=== PATIENT | male | born 1975 | race Caucasian/White ===

== ENCOUNTER → 2018-04-29 | Day surgery (SDC) | payer OTHER ==
[~2018-04-29] VITALS: Ht 170.2 cm; Wt 86.8 kg
[~2018-04-29] MED LIST: AMLO-511 PO; ASPI81 PO; ATOR40TA28 PO; BENZOCAINE 20% 50 MCG/SPRAY 57 GM ONE; BENZOCAINE 20% 50 MCG/SPRAY 57 GM TP ONE; FentaNYL CITRATE-PF 100 MCG/2 ML VIAL IVP ONE; FentaNYL CITRATE-PF 100 MCG/2 ML VIAL ONE; LOSA50TA37 PO; METO25 PO; MIDAZOLAM HCL 2 MG/2 ML VIAL IVP ONE; MIDAZOLAM HCL 2 MG/2 ML VIAL ONE; OXYGEN THERAPY IH SCH; SODIUM CHLORIDE 0.9% 1,000 ML IV ONE
[2018-04-29 06:54] LABS: BASOPHILS % (AUTO) 1.1 % (0.0-2.0); EOSINOPHILS % (AUTO) 2.1 % (1.0-6.0); HEMATOCRIT 38.4 % (41-53); HEMOGLOBIN 13.3 g/dL (13.5-17.5); LYMPHOCYTES % (AUTO) 29.8 % (22.0-44.0); MEAN CORPUSCULAR HEMOGLOBIN 29.4 pg (26.0-34.0); MEAN CORPUSCULAR HGB CONC 34.7 G/dL (31.0-37.0); MEAN CORPUSCULAR VOLUME 85 fL (80-100); MONOCYTES # (AUTO) 0.5 K/uL (0.1-1.0); MONOCYTES % (AUTO) 7.5 % (2.0-9.0); NEUTROPHILS # (AUTO) 3.9 K/uL (1.8-7.7); NEUTROPHILS % (AUTO) 59.5 % (40.0-70.0); PLATELET COUNT (AUTO) 159 K/uL (150-450); RED BLOOD CELL COUNT(AUTO) 4.53 MIL/uL (4.50-5.90); RED CELL DISTRIBUTION WIDTH 13.5 % (11.5-14.5)
[2018-04-29 07:26] LABS: ANION GAP 5 mmol/L (8-16); CALCIUM, TOTAL 8.6 mg/dL (8.8-10.5); CARBON DIOXIDE 27 mmol/L (22-29); CHLORIDE 108 mmol/L (98-107); CREATININE 0.87 mg/dL (0.60-1.30); GLOMERULAR FILTR. RATE CALC > 60 mL/min (>60); GLUCOSE,RANDOM 96 mg/dL (70-110); POTASSIUM 4.1 mmol/L (3.5-5.1); SODIUM SERUM 140 mmol/L (136-145); UREA NITROGEN, BLOOD 18 mg/dL (7-18)
[2018-04-29 07:30] LABS: INR 1.1 (0.9-1.1); PROTHROMBIN TIME 11.8 SEC (9.4-11.6)
[2018-04-29 07:37] VITALS: BP 150/85
[2018-04-29 08:17] VITALS: BP 114/71
== END | disposition home or self-care (01) ==
LOC: CATHLAB 06:16
PROVIDERS: ATTEND Internal Medicine Cardiovascular Disease
DX: I44.0 Atrioventricular block, first degree (principal); Q21.1 Atrial septal defect; I45.2 Bifascicular block; I11.9 Hypertensive heart disease without heart failure; Z79.82 Long term (current) use of aspirin; Z79.899 Other long term (current) drug therapy
CPT/HCPCS: 36415; 80048; 85025; 85610; 85730; 93005; 93312; 99152; 99153; J2250; J3010; J7030

== ENCOUNTER 2022-08-01 19:26 | Emergency (ER) | payer OTHER ==
[~2022-08-01] VITALS: Ht 170.2 cm; Wt 77.3 kg
[~2022-08-01 19:26] MED LIST changes: +AMLO-257 PO; -AMLO-511 PO; +ASPI-1450 PO; -ASPI81 PO; -BENZOCAINE 20% 50 MCG/SPRAY 57 GM ONE; -BENZOCAINE 20% 50 MCG/SPRAY 57 GM TP ONE; -FentaNYL CITRATE-PF 100 MCG/2 ML VIAL IVP ONE; -FentaNYL CITRATE-PF 100 MCG/2 ML VIAL ONE; +LOSA-382 PO; -LOSA50TA37 PO; -MIDAZOLAM HCL 2 MG/2 ML VIAL IVP ONE; -MIDAZOLAM HCL 2 MG/2 ML VIAL ONE; -OXYGEN THERAPY IH SCH; -SODIUM CHLORIDE 0.9% 1,000 ML IV ONE
[2022-08-01] MEDS ORDERED: ALIR75PE5 IM (20:01)
[2022-08-01 20:29] LABS: BASOPHILS % (AUTO) 1.1 % (0.0-2.0); EOSINOPHILS % (AUTO) 2.6 % (1.0-6.0); HEMATOCRIT 44.9 % (41-53); HEMOGLOBIN 14.9 g/dL (13.5-17.5); LYMPHOCYTES # (AUTO) 2.4 K/uL (1.0-4.8); LYMPHOCYTES % (AUTO) 31.8 % (22.0-44.0); MEAN CORPUSCULAR HEMOGLOBIN 28.5 pg (26.0-34.0); MEAN CORPUSCULAR HGB CONC 33.2 G/dL (31.0-37.0); MEAN CORPUSCULAR VOLUME 86 fL (80-100); MONOCYTES # (AUTO) 0.6 K/uL (0.1-1.0); MONOCYTES % (AUTO) 7.5 % (2.0-9.0); NEUTROPHILS # (AUTO) 4.3 K/uL (1.8-7.7); PLATELET COUNT (AUTO) 141 K/uL (150-450); RED BLOOD CELL COUNT(AUTO) 5.23 MIL/uL (4.50-5.90); RED CELL DISTRIBUTION WIDTH 14.3 % (11.5-14.5)
[2022-08-01 20:38] LABS: ANION GAP 13 mmol/L (8-16); CALCIUM, TOTAL 9.5 mg/dL (8.8-10.5); CARBON DIOXIDE 23 mmol/L (22-29); CHLORIDE 104 mmol/L (98-107); GLUCOSE,RANDOM 98 mg/dL (70-110); POTASSIUM 3.8 mmol/L (3.5-5.1); SODIUM SERUM 140 mmol/L (136-145); UREA NITROGEN, BLOOD 20 mg/dL (7-18)
[2022-08-01 20:39] LABS: GLOMERULAR FILTR. RATE CALC > 60 mL/min (>60)
[2022-08-01 20:44] LABS: ALANINE AMINOTRANSFERASE 277 U/L (12-78); ALBUMIN 4.2 g/dL (3.4-5.0); ALKALINE PHOSPHATASE 49 U/L (46-116); ASPARTATE AMINOTRANSFERASE 147 U/L (15-37); BILIRUBIN,TOTAL 0.5 mg/dL (0.1-1.0); TOTAL PROTEIN, SERUM 7.6 g/dL (6.4-8.2)
[2022-08-01 20:48] LABS: APPEARANCE,URINE HAZY (CLEAR); BILIRUBIN,URINE NEGATIVE (NEGATIVE); GLUCOSE, URINE (UA) NEGATIVE (NEGATIVE); KETONES,URINE NEGATIVE (NEGATIVE); LEUKOCYTE ESTERASE ,URINE NEGATIVE (NEGATIVE); NITRATE,URINE NEGATIVE (NEGATIVE); OCCULT BLOOD,URINE LARGE (NEGATIVE); PROTEIN,URINE 30-70 mg/dL (NEGATIVE); SPECIFIC GRAVITIY, URINE 1.023 (1.003-1.030); UROBILINOGEN,URINE <=1.0 mg/dL (<=1.0)
[2022-08-01 21:27] LABS: RBC,URINE >100 /HPF (0-2)
[2022-08-01 21:28] LABS: BACTERIA,URINE None Seen /HPF (None Seen)
[2022-08-01] MEDS ORDERED: KETOROLAC TROMETHAMINE 30 MG/ML VIAL IVP ONE (22:45)
[2022-08-01] MEDS ORDERED: SODIUM CHLORIDE 0.9% 1,000 ML IV ONE (22:45)
[2022-08-02] MEDS ORDERED: HYDR-4723 PO (00:58)
[2022-08-02] MEDS ORDERED: SULF-261 PO (00:58)
[2022-08-02] MEDS ORDERED: TAMS-13 PO (00:58)
[2022-08-02] MEDS ORDERED: TAMSULOSIN HCL 0.4 MG CAPSULE PO ONE (01:00)
[2022-08-02] MEDS ORDERED: SULFAMETHOX/TRIMETH DS 800-160 MG/TABLET PO ONE (01:00)
[2022-08-02 01:50] VITALS: BP 130/79
== END 2022-08-02 02:14 | disposition home or self-care (01) ==
LOC: EMS 19:26
DX: N20.1 Calculus of ureter (principal); E78.00 Pure hypercholesterolemia, unspecified; I10 Essential (primary) hypertension; R74.01 Elevation of levels of liver transaminase levels; Z87.442 Personal history of urinary calculi
CPT/HCPCS: 99284; 74176; 96374; 76700; 80053; 81001; 85025; 36415; J1885; J7030; 81003

== ENCOUNTER 2022-08-15 14:16 | Inpatient (IN) | payer OTHER ==
[~2022-08-15] VITALS: Ht 172.7 cm; Wt 88.3 kg
[~2022-08-15 14:16] MED LIST changes: +ALIR75PE5 IM; -AMLO-257 PO; -ATOR40TA28 PO; +HYDR-4723 PO; -LOSA-382 PO; +SULF-261 PO; +TAMS-13 PO
[2022-08-15] MEDS ORDERED: SODIUM CHLORIDE 0.9% 1,000 ML IV ONE ×2 (16:30→18:00)
[2022-08-15] MEDS ORDERED: KETOROLAC TROMETHAMINE 30 MG/ML VIAL IVP ONE (16:30)
[2022-08-15 16:39] LABS: BASOPHILS % (AUTO) 0.7 % (0.0-2.0); EOSINOPHILS % (AUTO) 0.6 % (1.0-6.0); HEMATOCRIT 47.2 % (41-53); HEMOGLOBIN 15.4 g/dL (13.5-17.5); LYMPHOCYTES % (AUTO) 11.7 % (22.0-44.0); MEAN CORPUSCULAR HEMOGLOBIN 28.8 pg (26.0-34.0); MEAN CORPUSCULAR HGB CONC 32.7 G/dL (31.0-37.0); MEAN CORPUSCULAR VOLUME 88 fL (80-100); MONOCYTES # (AUTO) 0.5 K/uL (0.1-1.0); MONOCYTES % (AUTO) 6.1 % (2.0-9.0); NEUTROPHILS # (AUTO) 7.1 K/uL (1.8-7.7); NEUTROPHILS % (AUTO) 80.9 % (40.0-70.0); PLATELET COUNT (AUTO) 123 K/uL (150-450); RED BLOOD CELL COUNT(AUTO) 5.35 MIL/uL (4.50-5.90); RED CELL DISTRIBUTION WIDTH 13.9 % (11.5-14.5)
[2022-08-15 16:53] LABS: ANION GAP 8 mmol/L (8-16); CALCIUM, TOTAL 9.3 mg/dL (8.8-10.5); CARBON DIOXIDE 28 mmol/L (22-29); CHLORIDE 104 mmol/L (98-107); CREATININE 0.84 mg/dL (0.60-1.30); GLOMERULAR FILTR. RATE CALC > 60 mL/min (>60); GLUCOSE,RANDOM 100 mg/dL (70-110); POTASSIUM 4.1 mmol/L (3.5-5.1); SODIUM SERUM 140 mmol/L (136-145); UREA NITROGEN, BLOOD 18 mg/dL (7-18)
[2022-08-15 16:57] LABS: ALANINE AMINOTRANSFERASE 210 U/L (12-78); ALBUMIN 4.3 g/dL (3.4-5.0); ALKALINE PHOSPHATASE 49 U/L (46-116); ASPARTATE AMINOTRANSFERASE 118 U/L (15-37); BILIRUBIN,TOTAL 0.9 mg/dL (0.1-1.0); LIPASE 171 U/L (73-393); TOTAL PROTEIN, SERUM 7.6 g/dL (6.4-8.2)
[2022-08-15 17:57] LABS: APPEARANCE,URINE HAZY (CLEAR); BILIRUBIN,URINE NEGATIVE (NEGATIVE); GLUCOSE, URINE (UA) NEGATIVE (NEGATIVE); LEUKOCYTE ESTERASE ,URINE NEGATIVE (NEGATIVE); NITRATE,URINE NEGATIVE (NEGATIVE); OCCULT BLOOD,URINE LARGE (NEGATIVE); PH,URINE 5.5 (5.0-8.0); PROTEIN,URINE 30-70 mg/dL (NEGATIVE); SPECIFIC GRAVITIY, URINE 1.022 (1.003-1.030); UROBILINOGEN,URINE <=1.0 mg/dL (<=1.0)
[2022-08-15 18:09] LABS: RBC,URINE 26-50 /HPF (0-2)
[2022-08-15 18:10] LABS: AMORPHOUS SEDIMENT,UR Few /LPF (None Seen); BACTERIA,URINE None Seen /HPF (None Seen); SQUAMOUS EPITHELIAL CELL,UR Few /LPF (None Seen); WBC,URINE 0-2 /HPF (0-5)
[2022-08-15 19:14] LABS: COVID AG,FIA SOURCE NASOPHARYNGEAL
[2022-08-15] MEDS ORDERED: HYDROCODONE/ACETAMINOPHEN 5-325 MG TABLET PO PRN (19:45)
[2022-08-15] MEDS ORDERED: ACETAMINOPHEN 325 MG TABLET PO PRN ×2 (19:45→20:15)
[2022-08-15] MEDS ORDERED: MORPHINE SULFATE 4 MG/ML SYRINGE IVP PRN (19:45)
[2022-08-15] MEDS ORDERED: ONDANSETRON HCL 4 MG/2 ML VIAL IVP PRN (19:45)
[2022-08-15] MEDS ORDERED: NALOXONE HCL 1 MG/ML 2 ML SYRINGE IVP PRN (20:15)
[2022-08-15] MEDS ORDERED: MORPHINE SULFATE 2 MG/ML SYRINGE IVP PRN (20:15)
[2022-08-15] MEDS: TAMSULOSIN HCL 0.4 MG CAPSULE PO SCH (21:01)
[2022-08-15 22:05] VITALS: BP 133/76
[2022-08-15] MEDS: MORPHINE SULFATE 4 MG/ML SYRINGE IVP PRN (23:46)
[2022-08-16 00:04] VITALS: BP 131/74
[2022-08-16 04:16] VITALS: BP 116/63
[2022-08-16 08:10] VITALS: BP 126/70
[2022-08-16 11:11] VITALS: BP 122/70
[2022-08-16] MEDS ORDERED: SODIUM CHLORIDE 0.9% 1,000 ML IV ONE (11:30)
[2022-08-16] MEDS ORDERED: *CLINICAL-LEVOFLOXACIN IVPB DOSING CLINICAL ONE (11:30)
[2022-08-16] MEDS: LEVOFLOXACIN 750 MG/D5% WATER 150 ML IV SCH (13:29)
[2022-08-16 16:32] VITALS: BP 136/74
[2022-08-16 17:26] LABS: GLUCOMETER DEV NAME(LOC) 5S.1B; GLUCOSE,POINT OF CARE 154 MG/DL (70-110)
[2022-08-16] MEDS: ONDANSETRON HCL 4 MG/2 ML VIAL IVP PRN ×2 (18:43→19:39)
[2022-08-16 19:20] VITALS: BP 132/80
[2022-08-16] MEDS: MORPHINE SULFATE 4 MG/ML SYRINGE IVP PRN (19:39)
[2022-08-16] MEDS: TAMSULOSIN HCL 0.4 MG CAPSULE PO SCH (20:58)
[2022-08-16] MEDS: HEPARIN SODIUM,PORCINE 5,000 UNITS/ML VIAL SQ SCH (23:57)
[2022-08-17 00:10] VITALS: BP 124/77
[2022-08-17] MEDS: MORPHINE SULFATE 4 MG/ML SYRINGE IVP PRN ×4 (02:21→19:52)
[2022-08-17] MEDS: ONDANSETRON HCL 4 MG/2 ML VIAL IVP PRN ×3 (02:22→19:52)
[2022-08-17 04:15] VITALS: BP 127/69
[2022-08-17 07:42] VITALS: BP 136/76
[2022-08-17] MEDS: HEPARIN SODIUM,PORCINE 5,000 UNITS/ML VIAL SQ SCH (08:00)
[2022-08-17] MEDS ORDERED: ASPI-1444 PO (11:42)
[2022-08-17] MEDS ORDERED: TAMS-13 PO (11:42)
[2022-08-17] MEDS ORDERED: METO-408 PO (11:42)
[2022-08-17] MEDS ORDERED: ALIR150P6 SQ (11:42)
[2022-08-17 11:55] VITALS: BP 150/84
[2022-08-17] MEDS: LEVOFLOXACIN 750 MG/D5% WATER 150 ML IV SCH (12:10)
[2022-08-17] MEDS ORDERED: METOPROLOL TARTRATE 25 MG TABLET PO SCH ×2 (12:15→21:00)
[2022-08-17] MEDS: METOPROLOL SUCCINATE 25 MG ER TABLET PO SCH (13:09)
[2022-08-17 16:02] VITALS: BP 140/90
[2022-08-17 19:21] VITALS: BP 124/75
[2022-08-17] MEDS: ATORVASTATIN CALCIUM 20 MG TABLET PO SCH (19:44)
[2022-08-17] MEDS: TAMSULOSIN HCL 0.4 MG CAPSULE PO SCH (19:51)
[2022-08-18 00:05] VITALS: BP 129/74
[2022-08-18] MEDS: MORPHINE SULFATE 4 MG/ML SYRINGE IVP PRN ×4 (01:45→20:48)
[2022-08-18] MEDS: ONDANSETRON HCL 4 MG/2 ML VIAL IVP PRN ×4 (01:45→20:48)
[2022-08-18 04:55] VITALS: BP 125/70
[2022-08-18 07:22] VITALS: BP 132/73
[2022-08-18] MEDS: METOPROLOL SUCCINATE 25 MG ER TABLET PO SCH (07:57)
[2022-08-18 11:28] VITALS: BP 129/77
[2022-08-18] MEDS ORDERED: SODIUM CHLORIDE 0.9% 500 ML IV ONE (12:38)
[2022-08-18] MEDS: LEVOFLOXACIN 750 MG/D5% WATER 150 ML IV SCH (12:39)
[2022-08-18] MEDS: DOCUSATE SODIUM 100 MG CAPSULE PO SCH ×2 (12:39→20:33)
[2022-08-18 15:47] VITALS: BP 131/76
[2022-08-18 20:07] VITALS: BP 138/74
[2022-08-18] MEDS: ATORVASTATIN CALCIUM 20 MG TABLET PO SCH (20:34)
[2022-08-18] MEDS: TAMSULOSIN HCL 0.4 MG CAPSULE PO SCH (20:34)
[2022-08-18] MEDS: MAGNESIUM HYDROXIDE SUSPENSION 30 ML UDCUP PO PRN (20:34)
[2022-08-19 00:22] VITALS: BP 111/63
[2022-08-19] MEDS: ONDANSETRON HCL 4 MG/2 ML VIAL IVP PRN (03:11)
[2022-08-19] MEDS: MORPHINE SULFATE 4 MG/ML SYRINGE IVP PRN (03:11)
[2022-08-19 05:00] VITALS: BP 134/72
[2022-08-19] MEDS ORDERED: RINGERS SOLUTION,LACTATED 1,000 ML IV ONE (07:28)
[2022-08-19 07:30] VITALS: BP 159/85
[2022-08-19] MEDS ORDERED: RINGERS SOLUTION,LACTATED 1,000 ML IV SCH (07:30)
[2022-08-19] MEDS ORDERED: IOHEXOL 240 MG/ML 50 ML VIAL ONE (08:44)
[2022-08-19] MEDS: METOPROLOL SUCCINATE 25 MG ER TABLET PO SCH (09:00)
[2022-08-19] MEDS ORDERED: SODIUM CL IRRIG SOLN BAG 0 ML IRRIG ONE (09:17)
[2022-08-19] MEDS ORDERED: FentaNYL CITRATE PF 100 MCG/2 ML VIAL IVP PRN (09:45)
[2022-08-19] MEDS ORDERED: HYDROmorphone 2 MG/ML VIAL IVP PRN (09:45)
[2022-08-19] MEDS ORDERED: MEPERIDINE-PF 25 MG/ML VIAL IVP PRN (09:45)
[2022-08-19] MEDS ORDERED: PHENAZOPYRIDINE HCL 200 MG TABLET PO PRN (10:30)
[2022-08-19 11:05] VITALS: BP 109/58
[2022-08-19] MEDS: LEVOFLOXACIN 750 MG/D5% WATER 150 ML IV SCH (11:29)
[2022-08-19] MEDS: DOCUSATE SODIUM 100 MG CAPSULE PO SCH ×2 (11:29→20:39)
[2022-08-19] MEDS ORDERED: ONDANSETRON HCL 4 MG/2 ML VIAL IVP ONE (12:00)
[2022-08-19] MEDS ORDERED: PROPOFOL 1% 20 ML VIAL IVP ONE (12:00)
[2022-08-19] MEDS ORDERED: SUCCINYLCHOLINE CHLORIDE 20 MG/ML 10 ML VIAL IVP ONE (12:00)
[2022-08-19] MEDS ORDERED: MIDAZOLAM HCL 2 MG/2 ML VIAL IVP ONE (12:00)
[2022-08-19] MEDS ORDERED: FentaNYL CITRATE PF 100 MCG/2 ML VIAL IVP ONE (12:00)
[2022-08-19] MEDS ORDERED: LIDOCAINE/PF 2% 5 ML VIAL IM ONE (12:00)
[2022-08-19] MEDS: MAGNESIUM HYDROXIDE SUSPENSION 30 ML UDCUP PO PRN (12:55)
[2022-08-19] MEDS ORDERED: BISACODYL 10 MG RECTAL RECTAL SUPPOSITORY PR PRN (14:00)
[2022-08-19 16:05] VITALS: BP 112/63
[2022-08-19] MEDS: OXYGEN THERAPY IH SCH (20:00)
[2022-08-19 20:29] VITALS: BP 124/65
[2022-08-19] MEDS: ATORVASTATIN CALCIUM 20 MG TABLET PO SCH (20:39)
[2022-08-19] MEDS: TAMSULOSIN HCL 0.4 MG CAPSULE PO SCH (20:40)
[2022-08-20 00:36] VITALS: BP 126/61
[2022-08-20 05:35] VITALS: BP 126/74
[2022-08-20 08:00] VITALS: BP 129/76
[2022-08-20] MEDS: OXYGEN THERAPY IH SCH (08:00)
[2022-08-20] MEDS: METOPROLOL SUCCINATE 25 MG ER TABLET PO SCH (08:28)
[2022-08-20] MEDS: DOCUSATE SODIUM 100 MG CAPSULE PO SCH (08:28)
[2022-08-20] MEDS ORDERED: CIPR500T10 PO (09:24)
[2022-08-20 12:00] VITALS: BP 140/74
[2022-08-20] MEDS: LEVOFLOXACIN 750 MG/D5% WATER 150 ML IV SCH (12:08)
[2022-08-20 18:51] LABS: GLUCOMETER DEV NAME(LOC) 5S.1B; GLUCOSE,POINT OF CARE 157 MG/DL (70-110)
== END 2022-08-20 15:50 | disposition home or self-care (01) | DRG 465 ==
LOC: EMS 14:18 → 5N 21:21 → 5S 08-16 16:11
PROVIDERS: ADMIT Internal Medicine; ATTEND Internal Medicine
PROC: BT1D1ZZ Fluoroscopy of Right Kidney, Ureter and Bladder using Low Osmolar Contrast (ICD-10-PCS; 2022-08-19)
PROC: 0T768DZ Dilation of Right Ureter with Intraluminal Device, Via Natural or Artificial Opening Endoscopic (ICD-10-PCS; principal; 2022-08-19 09:30)
DX: N13.2 Hydronephrosis with renal and ureteral calculous obstruction (principal); D69.6 Thrombocytopenia, unspecified; I11.9 Hypertensive heart disease without heart failure; E78.00 Pure hypercholesterolemia, unspecified; E78.5 Hyperlipidemia, unspecified; N40.0 Benign prostatic hyperplasia without lower urinary tract symptoms; I25.10 Atherosclerotic heart disease of native coronary artery without angina pectoris; E66.9 Obesity, unspecified; Z20.822 Contact with and (suspected) exposure to COVID-19; K76.0 Fatty (change of) liver, not elsewhere classified; Z87.442 Personal history of urinary calculi; Z95.1 Presence of aortocoronary bypass graft; Z79.899 Other long term (current) drug therapy; Z79.82 Long term (current) use of aspirin; Z68.29 Body mass index [BMI] 29.0-29.9, adult
CPT/HCPCS: 74176; 80053; 81001; 82962; 83690; 84484; 85025; 87081; 93005; 99285; J0330; J1885; J1956; J2250; J2270; J2310; J2405; J2704; J3010; J3490; J7030; J7040; J7120; Q9966